=== PATIENT | female | born 1965 | race Native Hawaiian/Other Pacific Islander ===

== ENCOUNTER 2018-08-20 11:41 | Emergency (ER) | payer OTHER ==
--- NOTE | 2018-08-20 13:00 | EDPHY ---
H & P Stated Complaint: right facial swelling Time Seen by Provider: 08/20/18 12:37 HPI/ROS: CHIEF COMPLAINT: Right facial swelling HISTORY OF PRESENT ILLNESS: 52-year-old immunocompetent female visiting from [place] complaining of 4 days of right facial swelling, odontalgia to her right maxillary molars. No fever or chills. No trismus or drooling. No nausea or vomiting. No flu-like symptoms. PRIMARY CARE PROVIDER: REVIEW OF SYSTEMS: 10 systems reviewed and negative with the exception of the elements mentioned in the history of present illness PAST MEDICAL & SURGICAL HISTORY: No pertinent medical or surgical history SOCIAL HISTORY: Nonsmoker. Visiting from [place] PHYSICAL EXAM (Prior to examination, patient consented to physical exam, hands were washed and my usual and customary physical exam procedures followed) 1) GENERAL: Well-developed, well-nourished, alert and oriented. Appears to be in no acute distress. 2) HEAD: Normocephalic, atraumatic 3) HEENT: Pupils equal, round, reactive to light bilaterally. Sclera anicteric. Asymmetrical right facial swelling with blunting of nasolabial fold on the right side noted. Nasopharynx: Clear. Oropharynx: Poor dentition. Tender to percussion tooth #5. Moist mucous membranes. Floor of mouth soft. No trismus no drooling. No evidence of Manjinder's angina. Ears bilaterally with normal tympanic membranes. No signs of otitis media otitis externa 4) NECK: Full range of motion, no meningeal signs. Submental, submandibular spaces are soft no induration, no crepitus 5) LUNGS: Clear auscultation bilaterally, no wheezes, no rhonchi, no retractions. 6) HEART: Regular rate and rhythm, no murmur, no heave, no gallop. 7) ABDOMEN: No guarding, no rebound, no focal tenderness, negative McBurney's, negative Alberto's, negative Rovsing's, negative peritoneal sign, 8) MUSCULOSKELETAL: Moving all extremities, no focal areas of tenderness, no obvious trauma. No peripheral edema or discoloration. 9) BACK: No CVA tenderness, no midline vertebral tenderness, no fluctuance, no step-off, no obvious trauma, no visual or palpable abnormality. 10) SKIN: No rash, no petechiae. 11) Psychiatric: Patient is oriented X 3, there is no agitation. DIFFERENTIAL DIAGNOSIS: In no particular order including but not limited to - Personal History LMP (Females 10-55): 22-28 Days Ago Current Tetanus/Diphtheria Vaccine: Yes - Medical/Surgical History Hx Asthma: No Hx Chronic Respiratory Disease: No Hx Diabetes: No Hx Cardiac Disease: No Hx Renal Disease: No Hx Cirrhosis: No Hx Alcoholism: No Other PMH: Denies - Social History Smoking Status: Former smoker Constitutional: Initial Vital Signs Temperature (C) 36.8 C 08/20/18 11:43 Heart Rate 97 08/20/18 11:43 Respiratory Rate 18 08/20/18 11:43 Blood Pressure 158/120 H 08/20/18 11:43 O2 Sat (%) 93 08/20/18 11:43 O2 Delivery Mode Room Air Allergies/Adverse Reactions: No Known Allergies Allergy (Unverified 08/20/18 11:47) Home Medications: Medication Instructions Recorded Amoxicillin Trihydrate 500 mg PO Q8 7 Days cap 08/20/18 [Amoxicillin 500mg cap] Hydrocodone/APAP 5/325 [[place] 1 tab PO Q6 PRN #10 tab 08/20/18 5/325 (RX)] Medical Decision Making - Diagnostics Imaging Results: Imaging Impressions Face CT 08/20/18 12:56 Impression: 1. Dental disease with lucency around the roots of the right first molar along the maxillary arch with adjacent small abscess adjacent to the bone and roots. 2. Predominantly noncalcified plaque within the right carotid bulb to proximal ICA with only mild stenosis and scattered plaques involving the distal ICA around the carotid siphon as well as distal vertebral arteries. Findings discussed with Morgan DUENAS at 14:06 hour, 08/20/2018. Images reviewed myself and discussed with radiologist ED Course/Re-evaluation: 1415 Hrs: Consultation with Dr. Sneha Blount, on-call oral surgery who agrees to see the patient in her office at this time for the patient's dental abscess. Patient will go directly to the office. I explained this to the patient, and the patient will go directly without eating. Usual and customary odontogenic precautions and instructions provided. Care of patient under supervision of secondary supervising physician Dr Young . - Data Points Laboratory Results: 08/20/18 13:11 POC Hgb 16.3 gm/dL gm/dL (12.6-16.3) POC Hct 48 % H % (38-47) POC Sodium 140 mEq/L mEq/L (135-145) POC Potassium 3.2 mEq/L L mEq/L (3.3-5.0) POC Chloride 102 mEq/L mEq/L (97-110) POC BUN 6 mg/dL L mg/dL (7-23) POC Creatinine 0.5 mg/dL L mg/dL (0.6-1.0) POC Glucose 93 mg/dL mg/dL (70-100) Point of Care Test Results: Chemistry 08/20/18 13:11 POC Sodium 140 mEq/L mEq/L (135-145) POC Potassium 3.2 mEq/L L mEq/L (3.3-5.0) POC Chloride 102 mEq/L mEq/L (97-110) POC BUN 6 mg/dL L mg/dL (7-23) POC Creatinine 0.5 mg/dL L mg/dL (0.6-1.0) POC Glucose 93 mg/dL mg/dL (70-100) ISTAT H&H 08/20/18 13:11 POC Hgb 16.3 gm/dL gm/dL (12.6-16.3) POC Hct 48 % H % (38-47) Departure - Departure Disposition: Home, Routine, Self-Care Clinical Impression: Dental abscess Condition: Good Instructions: Dental Abscess (ED) Additional Instructions: Go directly to Dr. Sneha Blount's office. Do not eat. Referrals: Sneha Blount DDS [Doctor of Dental Surgery] - 08/20/18 2:30 pm Prescriptions: Amoxicillin Trihydrate [Amoxicillin 500mg cap] 500 mg PO Q8 7 Days cap Hydrocodone/APAP 5/325 [[place] 5/325 (RX)] 1 tab PO Q6 PRN #10 tab PRN Reason: Pain, Severe
[2018-08-20] MEDS ORDERED: IOPAMIDOL (ISOVUE-300) 100 ML BTL ONE (13:18)
[2018-08-20 14:02] VITALS: BP 173/105
== END 2018-08-20 14:35 | disposition home or self-care (01) ==
DX: K04.7 Periapical abscess without sinus (principal)
CPT/HCPCS: 82435-PO; 82565-PO; 82947-PO; 84132-PO; 84295-PO; 84520-PO; 85014-PO; Q9967